=== PATIENT | female | born 1995 | race Asian ===

== ENCOUNTER → 2021-09-13 | Outpatient (CLI) | payer OTHER ==
[~2021-09-13] MED LIST: ISOVUE-300 61% 50ML VIAL As Ordered ONE; LIDOCAINE 1% MDV 20ML VIAL As Ordered ONE; PROHANCE 279.3MG/ML 5ML VIAL As Ordered ONE
== END ==
LOC: M RADPRO 06:12
PROVIDERS: ATTEND Physician Assistant
DX: M25.551 Pain in right hip (principal)
CPT/HCPCS: 27093; 73723; 77002; A9576; Q9967

== ENCOUNTER → 2021-09-18 | Outpatient (CLI) | payer OTHER | LOC: M RADPRO 06:44 → EDUNIT# 07:00 | PROVIDERS: ATTEND Physician Assistant | DX: M25.552 Pain in left hip (principal) | CPT/HCPCS: 27093; 73723; 77002; A9576; Q9967 ==

== ENCOUNTER 2021-10-22 15:12 | Emergency (ER) | payer OTHER ==
[~2021-10-22] VITALS: Ht 154.9 cm; Wt 61.4 kg
[2021-10-22 15:13] VITALS: BP 130/83
[2021-10-22] MEDS ORDERED: AMOX875T2 PO (18:27)
[2021-10-22] MEDS ORDERED: KETO10TAB PO (18:27)
[2021-10-22] MEDS ORDERED: ANBE20GE TOP (18:28)
== END 2021-10-22 18:36 | disposition home or self-care (01) ==
LOC: M ED 15:12
DX: K02.9 Dental caries, unspecified (principal); K08.89 Other specified disorders of teeth and supporting structures

== ENCOUNTER 2021-12-30 11:34 | Emergency (ER) | payer OTHER ==
[~2021-12-30] VITALS: Ht 152.4 cm; Wt 62.7 kg
[~2021-12-30 11:34] MED LIST changes: +AMOX875T2 PO; +ANBE20GE TOP; -ISOVUE-300 61% 50ML VIAL As Ordered ONE; +KETO10TAB PO; -LIDOCAINE 1% MDV 20ML VIAL As Ordered ONE; -PROHANCE 279.3MG/ML 5ML VIAL As Ordered ONE
[2021-12-30 12:50] LABS: BASO % 0.5 % (0.0-1.0); EOS # 0.1 10^3/uL (0.0-0.5); EOS % 0.9 % (0.0-3.0); HEMATOCRIT 38.1 % (36.0-47.0); HEMOGLOBIN 12.8 g/dl (12.0-15.5); LYMPH # 2.8 10^3/uL (1.5-5.0); MEAN CORPUSCULAR HEMOGLOBIN 31.2 pg (27.0-33.0); MEAN CORPUSCULAR HGB CONC 33.6 g/dl (32.0-36.5); MEAN CORPUSCULAR VOLUME 92.9 fl (80.0-96.0); MONO # 0.5 10^3/uL (0.0-0.8); MONO % 6.5 % (2.0-8.0); NEUTROPHILS # 4.5 10^3/uL (1.5-8.5); NEUTROPHILS % 56.8 % (36.0-66.0); PLATELET COUNT, AUTOMATED 273 10^3/uL (150-450); WHITE BLOOD COUNT 7.9 10^3/uL (4.0-10.0)
[2021-12-30 15:21] VITALS: BP 110/71
== END 2021-12-30 15:21 | disposition home or self-care (01) ==
LOC: M ED 11:34
DX: O20.0 Threatened abortion (principal)